=== PATIENT | male | born 1975 | race Asian ===

== ENCOUNTER 2016-11-04 16:43 | Emergency (ER) | payer OTHER ==
[2016-11-04 16:49] VITALS: RESP 16; TEMP 98.4
[2016-11-04] MEDS ORDERED: IBUPROFEN 600 MG TAB PO ONE (17:02)
--- NOTE | 2016-11-04 17:19 | EDPHY ---
H & P Time Seen by Provider: 11/04/16 16:55 HPI/ROS: 41-year-old male presents complaining of crushed his left foot between a Pallet and an electric Ryan while at work. Review of systems As per HPI General no fever no chills no weakness HEENT no eye pain no eye discharge. No eye redness, no sore throat Respiratory no cough, no shortness of breath Cardiac no chest pain, no peripheral edema GI no abdominal pain, no diarrhea, no constipation, no nausea, no vomiting no flank pain, no hematuria, no dysuria Musculoskeletal no myalgias, positive joint pain Heme no easy bruising, no easy bleeding Endo no polyuria, no polydipsia Skin no rashes, no pruritus Neuro no syncope, no dizziness, no headaches Psych is no suicidal ideation, no homicidal ideation Past Medical/Surgical History: Noncontributory Social History: Noncontributory Smoking Status: Current some day smoker Physical Exam: 41-year-old male Alert and oriented in no acute distress nontoxic appearance, afebrile Atraumatic normocephalic Neck no JVD Lungs clear to auscultation, no respiratory distress Heart regular rate and rhythm Extremities no cyanosis clubbing edema Left foot with mild erythema over 1st MTP Distal 1st toe nontender, good capillary refill Area of tenderness dorsal medial foot primarily over MTP extending towards toe and toward foot, an area approximately 8 cm in size No crepitus No laceration Constitutional: Initial Vital Signs Temperature (C) 36.9 C 11/04/16 16:46 Heart Rate 76 11/04/16 16:46 Respiratory Rate 16 11/04/16 16:46 Blood Pressure 130/80 H 11/04/16 16:46 O2 Sat (%) 97 11/04/16 16:46 O2 Delivery Mode Room Air Allergies/Adverse Reactions: No Known Allergies Allergy (Unverified 11/04/16 16:50) Home Medications: Medication Instructions Recorded NK [No Known Home Meds] 11/04/16 Medical Decision Making - Diagnostics Imaging Results: Imaging Impressions Foot X-Ray 11/04/16 16:54 Impression: There is no acute osseous abnormality identified. ED Course/Re-evaluation: Medical decision making an ER course Patient seen and evaluated for foot pain after injury at work Differential diagnosis considered Contusion, crush injury, fracture Impression Significant contusion to left 1st MTP, distal dorsal medial foot as well Plan Ibuprofen as needed for pain Rest, ice, elevate Follow up with occupational health clinic - Data Points Medications Given: Discontinued Medications Ibuprofen (Motrin) 600 mg PO EDNOW ONE Stop: 11/04/16 17:03 Last Admin: 11/04/16 17:16 Dose: 600 mg Departure - Departure Disposition: Home, Routine, Self-Care Clinical Impression: Contusion of foot, left Condition: Good Instructions: Foot Contusion (ED) Referrals: NONE *PRIMARY CARE P,. [Primary Care Provider] - As per Instructions Stand Alone Forms: Work Limited Duty, Work Comp Follow Up
[2016-11-04 17:56] VITALS: BP 126/87; PULSE 78; O2SAT 96
== END 2016-11-04 17:51 | disposition home or self-care (01) ==
LOC: CED 16:43
DX: S90.32XA Contusion of left foot, initial encounter (principal); F17.200 Nicotine dependence, unspecified, uncomplicated; W23.0XXA Caught, crushed, jammed, or pinched between moving objects, initial encounter; Y92.69 Other specified industrial and construction area as the place of occurrence of the external cause; Y99.0 Civilian activity done for income or pay; Y93.89 Activity, other specified
CPT/HCPCS: 73630-PO